=== PATIENT | male | born 1990 ===

== ENCOUNTER 2018-06-14 10:58 | Emergency (ER) | payer BC, OTHER ==
[2018-06-14 11:14] VITALS: BP 167/82
--- NOTE | 2018-06-14 11:47 | UC ---
Skin Complaint HPI - HPI Summary HPI Summary: 27 yo male presents with rash. He tells me that he came back from the [facility] on 06/06. On 06/07 he noticed an itchy rash to his hands, thighs, legs, and ankles. Since that time his legs have improved, but the rash seems to be going up his arms and more itchy/red around his ankles. Has been taking benadryl daily and applying lotion. He admits that he was walking around in [place] a lot while in the [facility]. Denies getting bitten by anything. Denies fever, face swelling, throat swelling, SOB, chest pain. - History of Current Complaint Chief Complaint: UCSkin Time Seen by Provider: 06/14/18 11:46 Stated Complaint: SKIN COMPLAINT Hx Obtained From: Patient Onset/Duration: Gradual Onset Current Severity: None Pain Intensity: 0 - Allergy/Home Medications Allergies/Adverse Reactions: Allergies Allergy/AdvReac Type Severity Reaction Status Date / Time No Known Allergies Allergy Verified 06/14/18 11:14 Home Medications: Home Medications diphenhydrAMINE HCl [Benadryl Allergy] 25 mg PO 06/14/18 [History] PMH/Surg Hx/FS Hx/Imm Hx - Additional Past Medical History Additional PMH: None - Surgical History Surgical History: Yes Surgery Procedure, Year, and Place: [facility] 08/13/12 - Family History Known Family History: Positive: None - Social History Occupation: Employed Full-time Lives: With Family Alcohol Use: Weekly Substance Use Type: None Smoking Status (MU): Never Smoked Tobacco - Immunization History Most Recent Tetanus Shot: 4 yrs ago Review of Systems All Other Systems Reviewed And Are Negative: Yes Constitutional: Positive: Negative Skin: Positive: Rash Respiratory: Positive: Negative Cardiovascular: Positive: Negative Gastrointestinal: Positive: Negative Neurovascular: Positive: Negative Neurological: Positive: Negative Psychological: Positive: Negative Physical Exam - Summary Physical Exam Summary: GENERAL: NAD. WDWN. No pain distress. SKIN: Scattered slightly erythematous and raised urticaria on hands, distal forearm, ankles, and lower legs. No opens wounds, streaking, pain, or drainage. NECK: Supple. Nontender. No lymphadenopathy. CHEST: No accessory muscle use. Breathing comfortably and in no distress. CV: Pulses intact. Cap refill <2seconds NEURO: Alert. PSYCH: Age appropriate behavior. Triage Information Reviewed: Yes Vital Signs: Initial Vital Signs Temp 97.8 F 06/14/18 11:09 Pulse 52 06/14/18 11:09 Resp 18 06/14/18 11:09 BP 167/82 06/14/18 11:09 Pulse Ox 100 06/14/18 11:09 Vital Signs Reviewed: Yes Course/Dx - Course Course Of Treatment: Suspect contact dermatitis/uriticaria. Rx for prednisone and advised to continue benadryl - Diagnoses Provider Diagnosis: Urticaria, Contact dermatitis Discharge - Sign-Out/Discharge Documenting (check all that apply): Patient Departure All imaging exams completed and their final reports reviewed: No Studies - Discharge Plan Condition: Stable Disposition: HOME Prescriptions: predniSONE TAB* [Deltasone 20 MG TAB*] 60 mg PO DAILY #14 tab Patient Education Materials: Contact Dermatitis (DC), Poison Katheryn (ED) Referrals: No Primary Care Phys,NOPCP [Primary Care Provider] - Additional Instructions: If you develop a fever, shortness of breath, chest pain, new or worsening symptoms - please call your PCP or go to the ED. Your blood pressure was high at todays visit. Please see your primary provider within 4 weeks for recheck and re-evaluation. Continue taking benadryl daily. - Billing Disposition and Condition Condition: STABLE Disposition: Home
== END 2018-06-14 12:26 | disposition home or self-care (01) ==
LOC: UCEAST 10:58
DX: L50.9 Urticaria, unspecified (principal); L25.9 Unspecified contact dermatitis, unspecified cause
CPT/HCPCS: 99201; G0463